=== PATIENT | male | born 1995 | race Hispanic/Latino ===

== ENCOUNTER 2022-05-12 09:03 | Emergency (ER) | payer OTHER, SELFPAY ==
--- NOTE | 2022-05-12 09:12 | ED_ITS ---
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 Patient states he is had chronic left pain, he puts a topical medication on it when it painful in the morning. He states in the last 24 hours he developed a left-sided headache, left dental discomfort and sensitivity with brushing that started last night and into today. Patient has not appreciated any fevers or chills. No drainage, no redness, swelling or other skin changes. Denies any swelling of the tongue, airway or difficulty with swallowing. He denies any radiation to the ear. Patient has had no cough, cold or congestion. He is had a little extra mucus drainage. He denies any nausea or vomiting. No chest pain or pressure. No shortness of breath today. No nausea or vomiting. Patient has not had any other GI or urinary symptoms. He states he is otherwise healthy. No daily medications. Not take anything [id number] for pain. Patient states he was told by the dentist that he had x-rays there was something wrong they did not tell him exactly what and that he should have an MRI. He was referred back to his primary care to obtain imaging but they deferred this and wish to start with more conservative measures. Patient is unsure exactly what is on his dental x-rays. He states that it is believed he has the TMJ pain from grinding his teeth. He is supposed to follow-up on May 15 with a primary care, he plans to reach out to the dentist office to find out the exact findings from his x-ray imaging. He denies other surgeries. No known drug allergies. No tobacco, occasional alcohol, no illicit. He is accompanied by his family. Related Data Previous Rx's Medication Instructions Recorded penicillin V potassium 500 mg 500 mg PO QID #40 tabs 05/12/22 tablet Review of Systems Review of Systems ROS Unobtainable: All systems reviewed & are unremarkable except as noted in HPI and below Patient History Social History Smoking Status: Never smoker Exam Narrative Exam Narrative: GEN: well nourished, well appearing male, alert and oriented x 3, patient appears to be in mild distress. HEENT: Atraumatic, pupils are equal round reactive to light, extraocular movements are intact, nares are clear, TMs are clear with no fluid, there is no conjunctival pallor. Throat is clear without any exudates, erythema, tonsillar enlargement or uvular deviation, patient does not have any obvious dental caries, patient does have some of the left cheek particularly at the upper gums with some slight erythema in comparison to the alternative side. No pain with palpation of teeth. There is some slight swelling of the external gum of the upper teeth. Patient does not have any drainage. No fluctuance. No erythema or other skin changes externally. Patient has normal speech with no muffled voice or stridor. No palpable tenderness on exam. HEART: Regular rate and rhythm without murmur, clicks, rubs. LUNGS:Lungs clear to auscultation, no wheezes, rales, crackles, chest moves symmetrically ABD:bowel sounds normal, soft, non-tender, no guarding, rebound, rigidity, no masses noted, no hepatosplenomegal MSCL: Non-tender, no muscle atrophy, muscles strength 5/5 upper and lower extremities, full range of motion, normal gait NEURO:CN 2-12 intact, sensation normal SKIN: No rash, erythema other skin changes. Initial Vital Signs Initial Vital Signs: Vital Signs Temperature 97.3 F L 05/12/22 09:13 Pulse Rate 61 05/12/22 09:13 Respiratory Rate 16 05/12/22 09:13 Blood Pressure 136/96 H 05/12/22 09:13 Pulse Oximetry 99 05/12/22 09:13 Oxygen Delivery Method 05/12/22 09:13 Course Vital Signs Vital signs: Vital Signs - 8 hr 05/12/22 09:13 Temperature 97.3 F L Pulse Rate 61 Respiratory Rate 16 Blood Pressure 136/96 H Pulse Oximetry 99 Oxygen Delivery Method Room Air MDM - Dental/Oral MDM Narrative Medical decision making narrative: This is a 26-year-old male with history of TMJ from grinding his teeth. Patient states he is had increased sensitivity of his upper teeth in the past day with headache. He does have some swelling possible dental infection. Patient does not have other red flag symptoms. Discharge Plan Departure Patient Disposition: Home Clinical Impression: Headache, Pain, dental Activity Restrictions/Additional Instructions: Follow up Saturday with your provider at your scheduled appointment. I would recommend following up with the dentist office for your x-ray reports, they may also be able to fax them to your primary care provider's office. You do have some swelling along your gumline and inner cheek suspicious for dental infection. Talk with your physician and dentist about what would be appropriate further workup and imaging. You can take Tylenol up to a 1000 mg every 6 hours and/or ibuprofen up to 600 mg every 6 hours as needed. Please take antibiotics until completely gone. Prescription sent to [facility] in [place]. Please return for fevers, rapidly worsening swelling redness or changes to the face, severe headaches, passing out, persistent vomiting, swelling of your airway, tongue, muffled voice or other new or concerning symptoms. Prescriptions: New penicillin V potassium 500 mg tablet 500 mg PO QID Qty: 40 0RF Visit Report Forms: Patient Portal/API
[2022-05-12 09:13] VITALS: BP 136/96; PULSE 61; RESP 16; TEMP 36.3; O2SAT 99; BMI 29.4
== END 2022-05-12 09:38 | disposition home or self-care (01) ==
PROVIDERS: Emergency Provider Emergency Medicine
DX: R51.9 Headache, unspecified (principal); K08.89 Other specified disorders of teeth and supporting structures
CPT/HCPCS: 99281

== ENCOUNTER 2024-06-03 18:21 | Emergency (ER) | payer OTHER, SELFPAY ==
--- NOTE | 2024-06-03 18:29 | DI.RAD.S_ITS ---
PROCEDURE: XR ANKLE RT MIN 3V INDICATIONS: injury TECHNIQUE: 3 views of the ankle were acquired. COMPARISON: None. FINDINGS: Bones: Slightly comminuted and oblique fracture involving distal fibular shaft is seen with dorsal and lateral displacement at fracture site. No other fracture or dislocation is noted. Ankle mortise is normally aligned. No suspicious bony lesions. Soft tissues: No tibiotalar joint effusion. Achilles tendon appears normal. IMPRESSION: Acute comminuted and slightly displaced oblique fracture through distal fibular shaft as above. Dictated by: Lev Rodriguez M.D. on 06/03/2024 at 19:28 Approved by: Lev Rodriguez M.D. on 06/03/2024 at 19:28
[2024-06-03 18:33] VITALS: BP 141/75; PULSE 71; RESP 17; TEMP 36.6; O2SAT 98; BMI 29.9
--- NOTE | 2024-06-03 18:54 | DI.RAD.S_ITS ---
PROCEDURE: XR TIBIA FUBULA RT 2V INDICATIONS: fibula fx, further assessment TECHNIQUE: 2 views of the tibia and fibula were acquired. COMPARISON: None. FINDINGS: Bones: Comminuted oblique fracture involving distal fibular shaft is seen with dorsal and lateral displacement at fracture site. No tibial fracture is seen. No proximal to mid fibular shaft fracture. No suspicious bony lesions. Soft tissues: No suspicious soft tissue calcifications or masses. IMPRESSION: Displaced comminuted distal fibular shaft fracture. No other fracture or dislocation is seen. Dictated by: Lev Rodriguez M.D. on 06/03/2024 at 19:30 Approved by: Lev Rodriguez M.D. on 06/03/2024 at 19:31
--- NOTE | 2024-06-03 19:41 | ED.LOWEXIN ---
HPI - Extremity Injury (Lower) General Chief Complaint: Extremity Injury, Lower Stated Complaint: Fall, ankle px Time Seen by Provider: 06/03/24 18:53 Source: patient Mode of arrival: Wheelchair History of Present Illness HPI Narrative: 28-year-old male with no significant past medical history presents with right ankle pain. Patient was playing soccer on wet grass when his foot slipped and he heard a snap. He has been unable to bear weight on his extremity since that time. Related Data Previous Rx's Medication Instructions Recorded hydrocodone 5 mg-acetaminophen 325 1 tab PO Q8H PRN pain #12 tabs 06/03/24 mg tablet Allergies Allergy/AdvReac Type Severity Reaction Status Date / Time No Known Drug Allergies Allergy Verified 06/03/24 18:35 Patient History Medical History Shoulder pain (~2015) Foot pain (~2021) Left knee pain Encounter for well adult exam without abnormal findings Surgical History History of eye surgery (~10/24/23) Family History Father Liver failure Social History Smoking Status: Never smoker Smoking Status: Never smoker alcohol intake frequency: holidays/special occasions only Substance Use Type: does not use Exam Initial Vital Signs Initial Vital Signs: Vital Signs Temperature 98 F 06/03/24 18:33 Pulse Rate 71 06/03/24 18:33 Respiratory Rate 17 06/03/24 18:33 Blood Pressure 141/75 H 06/03/24 18:33 Pulse Oximetry 98 06/03/24 18:33 Oxygen Delivery Method Room Air 06/03/24 18:33 Const: Awake, alert, no acute distress, nontoxic appearing MSK: No deformity, compartments soft, palpable DP pulses, sensation intact and equal Skin: Warm, Dry, intact, no rashes Neuro: AO x3, CN II-XII grossly intact, moves all extremities Course Orders Ordered: ED Orders 06/03/24 18:29 XR ankle RT min 3V Stat 06/03/24 18:54 XR tibia fibula RT 2V Stat Discontinued Medications Acetaminophen (Acetaminophen 325 Mg Tablet) 975 mg PO NOW ONE Stop: 06/03/24 19:36 Last Admin: 06/03/24 19:48 Dose: 975 mg Documented By: BANDAR Hydrocodone Bitart/Acetaminophen (Hydrocodone/Acet 5/325 Prepack) 1 bottle MISC DIRECTED ONE Stop: 06/03/24 19:50 Last Admin: 06/03/24 19:57 Dose: 1 bottle Documented By: Oxycodone HCl (Oxycodone Ir 5 Mg Tablet) 5 mg PO NOW ONE Stop: 06/03/24 19:36 Last Admin: 06/03/24 19:48 Dose: 5 mg Documented By: BANDAR Vital Signs Vital signs: Vital Signs - 8 hr 06/03/24 18:33 06/03/24 20:30 Temperature 98 F Pulse Rate 71 Pulse Rate [Right Dorsalis Pedis] 62 Respiratory Rate 17 Blood Pressure 141/75 H Pulse Oximetry 98 Oxygen Delivery Method Room Air MDM - Extremity Injury (Lower) Imaging Data Extremity x-ray #1: Radiologist's Impression: PROCEDURE: XR ANKLE RT MIN 3V INDICATIONS: injury TECHNIQUE: 3 views of the ankle were acquired. COMPARISON: None. FINDINGS: Bones: Slightly comminuted and oblique fracture involving distal fibular shaft is seen with dorsal and lateral displacement at fracture site. No other fracture or dislocation is noted. Ankle mortise is normally aligned. No suspicious bony lesions. Soft tissues: No tibiotalar joint effusion. Achilles tendon appears normal. IMPRESSION: Acute comminuted and slightly displaced oblique fracture through distal fibular shaft as above. Dictated by: Lev Rodriguez M.D. on 06/03/2024 at 19:28 Approved by: Lev Rodriguez M.D. on 06/03/2024 at 19:28 Extremity x-ray #2: Radiologist's Impression: PROCEDURE: XR TIBIA FUBULA RT 2V INDICATIONS: fibula fx, further assessment TECHNIQUE: 2 views of the tibia and fibula were acquired. COMPARISON: None. FINDINGS: Bones: Comminuted oblique fracture involving distal fibular shaft is seen with dorsal and lateral displacement at fracture site. No tibial fracture is seen. No proximal to mid fibular shaft fracture. No suspicious bony lesions. Soft tissues: No suspicious soft tissue calcifications or masses. IMPRESSION: Displaced comminuted distal fibular shaft fracture. No other fracture or dislocation is seen. Dictated by: Lev Rodriguez M.D. on 06/03/2024 at 19:30 Approved by: Lev Rodriguez M.D. on 06/03/2024 at 19:31 MDM Narrative Medical decision making narrative: Slip and fall with ankle pain. Found to have distal fibular shaft fracture. Ankle appears intact. Patient informed of diagnosis, placed in splint and given crutches for ambulatory support. Patient was counseled on the importance of following up with Orthopedic surgery. Discharge Plan Departure Patient Disposition: Home Clinical Impression: Fibula fracture Qualifiers: Encounter type: initial encounter Fibula location: shaft Fracture type: closed Fracture morphology: comminuted Fracture alignment: displaced Laterality: right Qualified Code(s): S82.451A - Displaced comminuted fracture of shaft of right fibula, initial encounter for closed fracture Instructions: DI for Fracture Activity Restrictions/Additional Instructions: You have a fracture of your fibula, which is a small bone in your nuñez. Use the crutches to help you walk. Follow up with Orthopedic surgery. Prescriptions: New hydrocodone-acetaminophen 5-325 mg tablet 1 tab PO Q8H PRN (Reason: pain) Qty: 12 0RF Referrals: Juno Ruelas DO [Primary Care Provider] - Aundrea Ryan MD [Physician] - Stand Alone Forms: Patient Portal/API
[2024-06-03] MEDS: ACETAMINOPHEN 325 MG TABLET 975 MG PO (19:48)
[2024-06-03] MEDS: OXYCODONE IR 5 MG TABLET PO (19:48)
[2024-06-03] MEDS: HYDROCODONE/ACET 5/325 PREPACK 1 BOTTLE MISC (19:57)
[2024-06-03 20:30] VITALS: PULSE 62
== END 2024-06-03 20:53 | disposition home or self-care (01) ==
PROVIDERS: Emergency Provider Emergency Medicine; PCP Family Medicine
DX: S82.831A Other fracture of upper and lower end of right fibula, initial encounter for closed fracture (principal); W01.0XXA Fall on same level from slipping, tripping and stumbling without subsequent striking against object, initial encounter; Y93.66 Activity, soccer
CPT/HCPCS: 29515; 73590; 73610; 99283

== ENCOUNTER 2024-06-25 13:45 | Day surgery (SDC) | payer OTHER, SELFPAY ==
[2024-06-23 07:52] VITALS: BMI 30.1
[2024-06-25] VITALS (8 sets, daily range): BP systolic 124–138; BP diastolic 78–94; PULSE 69–82; RESP 10–18; TEMP 36.1–36.9; O2SAT 96–100; BMI 30.1
--- NOTE | 2024-06-25 14:07 | PM.PREOP ---
Pre-operative Note Interval Note History & Physical reviewed/Exam performed by Physician: Yes Changes to H&P: No
--- NOTE | 2024-06-25 15:58 | SUR.OPER ---
Supine on padded OR bed, head on pillow, arms secured on padded arm boards at <90 degrees abduction, legs uncrossed, safety belt at thigh, tape over blanket over lower legs.
[2024-06-25] MEDS: CEFAZOLIN 2 GM/100 ML PREMIX 100 ML IV (16:27)
[2024-06-25] MEDS: BUPIVACAINE 0.25% (PF) 30 ML, EPINEPHrine 0.15 MG INJ (16:36)
--- NOTE | 2024-06-25 17:20 | P.OP_ITS ---
Operative Date/Time/Diagnoses Date of procedure: 06/25/24 Time of procedure: 17:20 Pre-op diagnosis: Right fibula and syndesmosis fracture Post-op diagnosis: same Procedure & Clinicians Procedure: 1. ORIF right fibular shaft 2. ORIF right syndesmosis 3. Physician use of fluoroscopy less than 1 hour Same procedure as scheduled: Yes Indications: This is a 28-year-old male with a right fibula and syndesmosis fracture diagnosed with a stress radiograph in clinic. In order to restore the mortise and allow weight-bearing he was indicated for ORIF of his fibula and syndesmosis. Surgeon: Babar Faith Click Yes if Unassisted: Yes Anesthesia Type: General Operative Notes Findings: Right fibula fracture and syndesmosis fracture as seen under fluoroscopy and direct visualization Closure Type: primary Specimen(s): none sent Prosthetic devices, grafts, tissues, transplants, or devices: [employer] 1/3 tubular plate and ?invisiknot tight rope and suture button Estimated Blood Loss (mL): 10 Blood products transfused: none Tourniquet time (min): 30 Procedure in detail: Patient was met in the preoperative holding area. His right lower extremity was marked with my initials. We again went over the risks and benefits of surgery. Risks and benefits of surgery were discussed again including the risk of infection, damage to internal structures, bleeding, nerve injury, instability, need for revision surgery, blood clots, anesthesia and . No guarantees were made regarding outcomes. Patient expressed understanding and accepted these risks and wished to go forward with surgery and consent was signed. He was then brought back to the operating room and placed supine on the operating table. He underwent smooth induction of anesthesia. My initials were again c onfirmed on the right lower extremity and a time-out was performed. A tourniquet was placed on the right upper extremity. Standard prep and drape was performed. An Esmarch was then used and the tourniquet was inflated to 250 mmHg. Using fluoroscopy, the fracture of the fibula was localized and a incision was made directly over the fibula. Care was taken to look for the superficial peroneal nerve. This was not seen during the dissection. This was taken down to bone. Fracture site was cleaned. A 1/3 tubular plate was then selected and placed over the fibula. The proximal and distal holes were then filled with nonlocking screws. After good reduction was demonstrated, a tight rope was placed between the fibula and the tibia using a reduction technique compressing the fibula and tibia with some plantar flexion and internal rotation. This gave a good reduction of the syndesmosis. This was confirmed using fluoroscopy using a stress radiographs. The wounds were then irrigated and 20 cc of lidocaine were used around the incision. The wounds were then closed with 2-0 Vicryl and 2-0 nylon. He was then dressed with Xeroform, 4x4s, cast padding and an Lm bandage and was placed back into his walking boot. Complications: none Post-operative Condition: stable Disposition: PACU Plan for aftercare: Nonweightbearing for 6 weeks. Okay for dressings to come off in 3 days in order to shower. Let warm soap and water run over the incisions. Pat dry and ensure that the incision is completely dry before placing new clean dressings. If there are Steri-Strips, ensure that it is dry underneath. If water gets under the Steri-Strips, remove them. Keep the new dressings on for 2 more days. At postoperative day 5, remove all dressings and shower daily and let air dry. We must remain on at night.
[2024-06-25] MEDS: HYDROMORPHONE 1 MG INJ IV ×2 (17:25→17:35)
[2024-06-25] MEDS: OXYCODONE IR 5 MG TABLET PO ×2 (17:32→17:44)
[2024-06-25] MEDS: ACETAMINOPHEN 325 MG TABLET 650 MG PO (17:43)
== END 2024-06-25 18:25 | disposition home or self-care (01) ==
PROVIDERS: PCP Family Medicine; Referring Provider Family Medicine; Visit Provider Orthopaedic Surgery
PROC: 0SSF04Z Reposition Right Ankle Joint with Internal Fixation Device, Open Approach (ICD-10-PCS; CPT 27829; principal; 2024-06-25 15:45)
DX: S82.61XA Displaced fracture of lateral malleolus of right fibula, initial encounter for closed fracture (principal); S93.431A Sprain of tibiofibular ligament of right ankle, initial encounter; X50.1XXA Overexertion from prolonged static or awkward postures, initial encounter; Y93.66 Activity, soccer
CPT/HCPCS: 27829; 27784; C1713; J0171; J0690; J1100; J1171; J2250; J2405; J2704; J3010